=== PATIENT | female | born 1945 | race Caucasian/White ===

== ENCOUNTER 2019-11-27 05:37 | Emergency (ER) | payer MEDICARE ==
[~2019-11-27] VITALS: Ht 167.6 cm; Wt 57.3 kg
[~2019-11-27 05:37] MED LIST: NO HOME MEDS
[2019-11-27] MEDS ORDERED: meclizine 12.5mg tablet PO ONE ×2 (05:45→07:00)
[2019-11-27] MEDS ORDERED: ondansetron 4mg rapidly disintigrating tab PO ONE ×2 (05:45→07:00)
[2019-11-27] MEDS ORDERED: proCHLORperazine 10 MG/2 ml inj IV STA (05:53)
--- NOTE | 2019-11-27 05:54 | NUR ---
pt actively vomiting, MD informed and compazine ordered.
[2019-11-27 06:19] LABS: ALANINE AMINOTRANSFERASE 54 U/L (12-78); ALBUMIN 4.1 G/DL (3.4-5.0); ALBUMIN/GLOBULIN RATIO 1.3 (1.1-1.5); ALKALINE PHOSPHATASE 51 IU/L (46-116); ANION GAP 16 (8-16); ASPARTATE AMINO TRANSFERASE 24 U/L (10-37); BILIRUBIN,TOTAL 0.5 MG/DL (0.1-1.0); BLOOD UREA NITROGEN 24 MG/DL (7-18); BUN/CREATININE RATIO 25.5 (6.6-38.0); CALCIUM 9.2 MG/DL (8.5-10.1); CHLORIDE 102 MMOL/L (99-107); CREATININE 0.94 MG/DL (0.40-0.90); GLUCOSE 199 MG/DL (70-104); POTASSIUM 3.5 MMOL/L (3.5-5.1); SODIUM 137 MMOL/L (135-145); TOTAL PROTEIN 7.2 G/DL (6.4-8.2); eGFR 58 ML/MIN
--- NOTE | 2019-11-27 06:35 | NUR ---
patient received on bed,eyes closed,urine recollected and sent to the lab. Vital signs updated.we will monitor.
[2019-11-27] MEDS ORDERED: MECL-159 PO (06:45)
[2019-11-27] MEDS ORDERED: ONDA4TAB6 PO (06:45)
[2019-11-27 06:56] LABS: CLARITY,URINE SLIGHTLY CLOUDY (Clear); COLOR,URINE STRAW (Yellow); GLUCOSE, URINE 100 mg/dl (Neg); KETONES,URINE TRACE mg/dl (Neg); LEUKOCYTE ESTERASE ,URINE SMALL (Neg); NITRITES, URINE NEGATIVE (Neg); OCCULT BLOOD,URINE TRACE-INTACT (Neg); PH,URINE 6.5 (4.8-8.0); PROTEIN,URINE NEGATIVE (Neg); UROBILINOGEN,URINE 0.2 E.U/dL (0.2-1.0)
[2019-11-27 07:01] LABS: UA COLLECTION TYPE CLN CATCH MIDSTREAM
[2019-11-27 07:02] LABS: BACTERIA,URINE 4+ /HPF (Neg); MUCUS STRANDS FEW /LPF (Neg); RBC,URINE 0-2 /HPF (0-2); SQUAMOUS EPITHELIAL CELL,UR FEW /LPF (FEW); WBC,URINE 0-4 /HPF (0-4)
[2019-11-27 07:05] LABS: BASOPHILS % (AUTO) 0.7 % (0-1); EOSINOPHILS # (AUTO) 0.1 X10'3 (0-0.9); EOSINOPHILS % (AUTO) 1.7 % (0-6); HEMATOCRIT 35.1 % (35.0-45.0); HEMOGLOBIN 11.9 g/dl (12.0-16.0); LYMPHOCYTES # (AUTO) 1.2 X10'3 (1.1-4.8); LYMPHOCYTES % (AUTO) 22.6 % (21-51); MEAN CORPUSCULAR HEMOGLOBIN 29.4 PG (27.0-31.0); MEAN CORPUSCULAR HGB CONC 33.8 g/dL (33.0-36.5); MEAN CORPUSCULAR VOLUME 87.2 FL (78-98); MEAN PLATELET VOLUME 8.7 FL (7.4-10.4); MONOCYTES # (AUTO) 0.3 X10'3 (0-0.9); NEUTROPHILS # (AUTO) 3.7 X10'3 (1.8-7.7); PLATELET COUNT 179 X10'3 (140-440); RED BLOOD COUNT 4.03 X10'6 (4.20-5.60); RED CELL DISTRIBUTION WIDTH 13.5 % (11.5-14.5); WHITE BLOOD COUNT 5.3 X10'3 (4.5-11.0)
--- NOTE | 2019-11-27 07:43 | NUR ---
Anthony [phone] daughter Gio [phone] son-in-law Kat [phone] daughter in law
--- NOTE | 2019-11-27 09:37 | NUR ---
patient up to the bathroom,with primary RN standing by,denies dizziness at this time,noted with steady gait.Spoke to Dr. Mosley and made aware.In addition,also mentioned that patient needs rx for antibiotic/uti.
[2019-11-27] MEDS ORDERED: CEPH250T PO (10:12)
[2019-11-27] MEDS ORDERED: cephalexin 250mg capsule PO ONE (10:15)
[2019-11-27 10:26] VITALS: BP 133/63
--- NOTE | 2019-11-27 10:33 | NUR ---
Awaiting spouse to transport patient home.
== END 2019-11-27 10:26 | disposition home or self-care (01) ==
LOC: ER 05:38
DX: R42 Dizziness and giddiness (principal); R11.0 Nausea; R19.7 Diarrhea, unspecified; Z88.1 Allergy status to other antibiotic agents; Z88.8 Allergy status to other drugs, medicaments and biological substances; Z79.899 Other long term (current) drug therapy
CPT/HCPCS: 36415; 71045; 80053; 81001; 83880; 84484; 85025; 87077; 87088; 87186; 93005; 96374; 99285; J0780; J8597